=== PATIENT | male | born 1970 | race African-American/Black ===

== ENCOUNTER 2017-10-25 08:00 | Inpatient (IN) | payer OTHER ==
[~2017-10-25] VITALS: Ht 165.1 cm; Wt 101.2 kg
[2017-10-25] VITALS (7 sets, daily range): BP systolic 126–171; BP diastolic 76–88; TEMP 97.7–99.5; Ht 165.1 cm; Wt 101.2 kg
[2017-10-25 08:34] LABS: PLATELET COUNT 234 K/uL (142-355)
[2017-10-25 08:46] LABS: POTASSIUM 4.3 mmol/L (3.6-5.2)
[2017-10-26] VITALS (7 sets, daily range): BP systolic 108–135; BP diastolic 20–83; TEMP 97.9–99.1
--- NOTE | 2017-10-26 04:49 | NUR ---
10/25/171999 BLOOD SUGAR READING OF 430. STAT LAB PUT INTO LAB. COLLECTED LAB AND RESULT WAS 398. 9UNITS OF NOVOLIN R WAS GIVEN IN THE LT ARM. RECHECK BLOOD SUGAR IN 2 HOURS.
--- NOTE | 2017-10-26 04:51 | NUR ---
10/26/17 0000 BLOOD SUGAR WAS 312. NOVLIN R 8UNITS GIVEN IN ABDOMEN. RECHECK BLOOD SUGAR IN 2 HOURS.
--- NOTE | 2017-10-26 05:11 | NUR ---
10/26/17 0300 BLOOD SUGAR WAS 210. 4 UNITS OF NOVLIN R GIVEN IN THE RT SIDE OF THE ABD.
[2017-10-26 06:03] LABS: PLATELET COUNT 237 K/uL (142-355)
[2017-10-26 06:21] LABS: POTASSIUM 3.6 mmol/L (3.6-5.2)
--- NOTE | 2017-10-26 17:10 | NUR ---
Marcie Briseno,KEMAL made made round. Pt informed bleeding in mouth has stop. Orders for H&H, B12, IRON, FERRITIN, RETIC, BLOOD TYPE.PT HAS HAD NUMEROUS FAMILY AND FRIENDS TO VISIT. EX CAME TO VISIT IINQUIRING OF PT HEALTH STAUS, STAFF INFORMED HER AND PATIENT, SN INFORMED PATIENT HE MUST HAVE A SIGNED CONSENT FOR INFORMATION TO BE GIVEN OUT, ALSO ESTABLISH PASS WORD. HE VERBALIZED UNDERSTANDING. aND SIGNED CONSENT PASS WORD ESTABLISHED.
[2017-10-27 04:00] VITALS: BP 99/57; TEMP 98.8
[2017-10-27 07:38] LABS: POTASSIUM 3.7 mmol/L (3.6-5.2)
[2017-10-27 07:55] LABS: PLATELET COUNT 247 K/uL (142-355)
[2017-10-27 08:13] VITALS: BP 104/60; TEMP 98
[2017-10-27 12:11] VITALS: BP 131/75; TEMP 98.2
--- NOTE | 2017-10-27 15:04 | NUR ---
PT STATES BLEEDING FROM UPPER LEFT GUM AREA. PT STATES HE HAS BEEN BLEEDING OFF AND ON FOR ONE WEEK STRAIGHT. PT STATES HE BLEEDS LIKE THIS FOR 1-2 DAYS OUT OF A YEAR FOR 10 YEARS. JUDE ARREGUIN KNOCKDOWN MAN AWARE. CT RESULTS PENDING.
[2017-10-27 16:10] VITALS: BP 110/60; TEMP 98.1
[2017-10-27 20:00] VITALS: BP 114/62; TEMP 98.5
--- NOTE | 2017-10-27 22:53 | NUR ---
10/27/17 2030 ASSESSMENT COMPLETE. PT DENIES PAIN. SEVERAL FAMILY MEMBERS HAVE BEEN IN AND OUT, VISITING WITH PT. NO DISTRESS NOTED AT THIS TIME. WILL CONT. TO MONITOR PT. SH
--- NOTE | 2017-10-27 22:54 | NUR ---
10/27/172129 FSBS IS 337. PT RECEIVED NOVOLIN R 8 UNITS SS COVERAGE, IN R ABDOMEN. SNACK PROVIDED, 2 STACEY CRACKER PACKS AND 2 MILKS, LOWFAT. SH
[2017-10-28 00:12] VITALS: BP 112/58; TEMP 97.8
[2017-10-28 04:00] VITALS: BP 109/70; TEMP 97.4
--- NOTE | 2017-10-28 04:54 | NUR ---
0000 PT ASLEEP, AWAKENS EASILY WHEN SPOKEN TO. ANTIBIOTIC PO GIVEN TO PT. HE TAKES WITHOUT DIFFICULTY. SH
--- NOTE | 2017-10-28 04:55 | NUR ---
0230 PT SLEEPING WITH A LIGHT SNORE, HE IS ON HIS LEFT SIDE. NO PROBLEMS NOTED. WILL CONT TO MONITOR. SH.
[2017-10-28 05:59] LABS: PLATELET COUNT 248 K/uL (142-355)
[2017-10-28 06:16] LABS: POTASSIUM 4.5 mmol/L (3.6-5.2)
[2017-10-28 08:00] VITALS: BP 115/67; TEMP 98.3
--- NOTE | 2017-10-28 09:00 | NUR ---
SHERICE (OIL PLANT OPERATOR) SPOKE WITH PT ABOUT APPRORIATE DIABETIC DIET AND GAVE PT TEACHING SHEETS IN [place]GAR[place] AND SAMI. PT VERBALIZES UNDERSTANDING.
[2017-10-28] MEDS ORDERED: METF500T PO (10:54)
[2017-10-28] MEDS ORDERED: AMOXIL 500MG CAP PO (10:54)
[2017-10-28] MEDS ORDERED: METR250T19 PO (10:54)
--- NOTE | 2017-10-28 12:42 | NUR ---
PT DISCHARGED AT 1130. PT AND FAMILY VERBALIZES UNDERSTANDING OF DISCHARGE INSTRUCTIONS AND F/U APPOINTMNET. PT GIVEN ALL BELONGINGS. DEMETRIUS WHATLEY CALLED IN PRESCRIPTIONS TO JAH IN [place]. PT WHEELED OUT VIA W/C. NO PROBLEMS NOTED
== END 2017-10-28 11:30 | disposition home or self-care (01) | DRG 159 ==
LOC: ED 08:00 → EDBD 08:00 → MED/SURG 12:10
PROVIDERS: ADMIT Allergy & Immunology
DX: K04.7 Periapical abscess without sinus (principal); E11.9 Type 2 diabetes mellitus without complications; D64.89 Other specified anemias; K02.9 Dental caries, unspecified
CPT/HCPCS: 36415; 36591; 36600; 80053; 81000; 82150; 82607; 82728; 82746; 82805; 82947; 82948; 83036; 83540; 83605; 83735; 85014; 85018; 85027; 85044; 86850; 86900; 86901; 93005; 96361; 96372; 96374; 99284; J1815; Q9963